=== PATIENT | male | born 1950 | race Caucasian/White ===

== ENCOUNTER 2016-06-15 17:16 | Observation (INO) ==
[2016-06-15] MEDS ORDERED: Acetaminophen 325 MG TABLET PO PRN (20:14)
[2016-06-15] MEDS ORDERED: *HR* OxyCODONE Immed Rel 5 MG TABLET PO PRN (20:15)
[2016-06-15] MEDS ORDERED: *HR* HYDROmorphone (PF) 1 MG/ML SYRINGE IVP PRN (20:19)
[2016-06-15] MEDS ORDERED: amLODIPine 5 MG TABLET PO SCH (20:30)
[2016-06-15] MEDS ORDERED: Celecoxib 100 MG CAPSULE PO SCH (20:30)
[2016-06-15] MEDS ORDERED: Lisinopril 20 MG TABLET PO SCH (20:30)
[2016-06-15] MEDS: 0.9 % Sodium Chloride 1,000 ML IVC SCH (22:22)
[2016-06-15] MEDS ORDERED: Ondansetron 4 MG/2 ML VIAL IVP PRN (23:40)
[2016-06-16] MEDS ORDERED: Ondansetron 4 MG/2 ML VIAL IVP SCH
[2016-06-16] MEDS: 0.9 % Sodium Chloride 1,000 ML IVC SCH (06:42)
--- NOTE | 2016-06-16 06:46 | Urology History & Physical ---
Date of Encounter: 06/16/16 Time of Encounter: 06:44 Assessment and Plan (1) Ureteral stone Current Visit: Yes Status: Acute 65 year old man with a left ureteral stone. He is still having pain this morning and wishes to have his stone treated. Plan for left ureteroscopy, laser lithotripsy, and stent placement. All risks were informed. He is willing to proceed. History of Present Illness Chief complaint: Left flank pain HPI: Mr. Noel is a 65 year old male presents with left flank pain. He was seen at the [place] and a CT showed a 9mm stone at the L4 level of the left ureter. The pain is sharp and radiates to the groin. He says it is severe when it comes on. Pain medication improves his pain. He denies a stone history. Past Med Surg Social Fam HX - Past Medical History Medical history: hypertension Psychiatric history: no psych history - Past Surgical History Surgical History: knee replacement - Social History Smoking Status: Never smoker - Family History Father Hx Family Genitourinary Disorders: Yes (Prostate cancer,) Medications and Allergies Amlodipine Besylate 5 mg PO DAILY 06/15/16 [History] Atorvastatin Calcium 20 mg PO DAILY 06/15/16 [History] Celecoxib [Celebrex] 100 mg PO DAILY 06/15/16 [History] Lisinopril [Zestril] 20 mg PO DAILY 06/15/16 [History] Ondansetron ODT [Zofran ODT] 4 mg SL Q8HR 06/15/16 [History] Oxycodone HCl/Acetaminophen [Percocet 5-325 mg Tablet] 1 each PO Q6HR 06/15/16 [ History] Tamsulosin HCl [Flomax] 0.4 mg PO DAILY 06/15/16 [History] Vitamin B Complex 1 each PO DAILY 06/15/16 [History] Allergies No Known Allergies Allergy (Verified 06/15/16 20:03) Review of Systems - Constitutional no chills, no fever(s) - EENT Nose, mouth and throat: no dizziness - Cardiovascular no chest pain - Respiratory no dyspnea - Gastrointestinal nausea, no vomiting - Genitourinary flank pain, no hematuria - Musculoskeletal no back pain - Integumentary no erythema, no rash - Neurological no weakness - Psychiatric no suicidal ideation - Hematologic/Lymphatic no easy bleeding - Allergic/Immunologic no wheezing Exam Initial Vital Signs Temp Pulse Resp BP Pulse Ox 98.1 F 64 16 152/79 92 06/15/16 19:36 06/15/16 19:36 06/15/16 19:36 06/15/16 19:36 06/15/16 19:36 - General physical appearance Present: well developed, well nourished, no distress - Eyes Absent: icteric - ENT Present: normal nares - Neck Present: trachea midline - Respiratory Present: normal respiratory effort - Cardiovascular Cardiovascular exam IM: RRR - Abdomen Abdomen: Present: soft Urology Results - Labs All other labs normal. - Imaging CT scan - abdomen: report reviewed, image reviewed
[2016-06-16] MEDS ORDERED: *HR* Succinylcholine 200 MG/10 ML VIAL IVP ONE (07:15)
[2016-06-16] MEDS ORDERED: *HR* FentaNYL (PF) 100 MCG/2 ML VIAL ONE (07:15)
[2016-06-16] MEDS ORDERED: *HR* Midazolam HCl 2 MG/2 ML VIAL ONE (07:15)
[2016-06-16] MEDS ORDERED: Lidocaine -MPF 2% 2 ML VIAL ONE (07:15)
[2016-06-16] MEDS ORDERED: *HR* Propofol 200 MG/20 ML VIAL IVP ONE (07:15)
--- NOTE | 2016-06-16 07:25 | Anesthesia Evaluation PreOp ---
Date of Encounter: 06/16/16 Time of Encounter: 07:23 - Past History Planned Operation: Left Ureteroscopy, Laser Lithotripsy Cardiac History: HTN, Hyperlipidemia Pulmonary History: Snore, ROSIO Dx SUMMER ANALYST History: Denies Any Significant HX Other Medical History: Renal (kidney stones), GERD Anesthesia History: No Prior Anesthetic Complications, Past Anesthesia Alcohol Use: none Drug use: none Medications and Allergies Amlodipine Besylate 5 mg PO DAILY 06/15/16 [History] Atorvastatin Calcium 20 mg PO DAILY 06/15/16 [History] Celecoxib [Celebrex] 100 mg PO DAILY 06/15/16 [History] Lisinopril [Zestril] 20 mg PO DAILY 06/15/16 [History] Ondansetron ODT [Zofran ODT] 4 mg SL Q8HR 06/15/16 [History] Oxycodone HCl/Acetaminophen [Percocet 5-325 mg Tablet] 1 each PO Q6HR 06/15/16 [ History] Tamsulosin HCl [Flomax] 0.4 mg PO DAILY 06/15/16 [History] Vitamin B Complex 1 each PO DAILY 06/15/16 [History] Allergies No Known Allergies Allergy (Verified 06/15/16 20:03) - Meds/Allergy Pre-op Review Medications Reviewed: Yes Allergies Reviewed: Yes Beta Blockers on Current Med List: No Anesthesia Results - Labs WBC 5 HGB 13.6 HCT 42.2 PLT 201 Na 141 K 3.6 BUN 12 Cr 1.19 Anesthesia Exam Vital Signs/O2 Sat, Most Current Temp Pulse Resp BP Pulse Ox 98.0 F 60 16 133/73 90 06/16/16 07:18 06/16/16 07:18 06/16/16 07:18 06/16/16 07:18 06/16/16 07:18 Height: 6'1''/1.85 m Weight: 219 lbs/99.7 kg NPO (# of Hours): 8 Pain Scale: 2 Pain Scale Used: Numeric (1 - 10) - HEENT Pupil (Motor): EOMI Mallampati: II Teeth: Edentulous Oral Opening: Greater than 3 - SUMMER ANALYST LOC: Oriented SUMMER ANALYST Motor: Normal RUE, Normal LUE, Normal RLE, Normal LLE, Normal Face SUMMER ANALYST Sensory: Normal: RUE, LUE, RLE, LLE, Face - Cardiac Rhythm: Regular Murmur: None - Pulmonary Breath Sounds: bilateral Clear Respiratory Effort: Symmetrical Anesthesia Assess/Plan ASA Score: 2 Modified Jyoti Scale for Level of Consciousness: Cooperative, oriented, and tranquil Anesthetic Plan: General Monitoring Plan: Standard Monitors Recovery Plan: PACU
[2016-06-16] MEDS ORDERED: *HR* HYDROmorphone (PF) 1 MG/ML SYRINGE IVP PRN ×2 (07:34→09:34)
--- NOTE | 2016-06-16 07:47 | Operative Note ---
Date of procedure: 06/16/16 Pre-op diagnosis: Left ureteral stone Post-op diagnosis: same Procedure: Left ureteroscopy, laser lithotripsy, basket stone extraction, and left ureteral stent placement. Implants: 6 [place] by 26 cm double-J stent. Complications: None. Anesthesia: ROSAA Surgeon: Tobin Henley Estimated blood loss (cc): 1 Specimen: Left ureteral stone Condition: stable Disposition: PACU Procedure in Detail: Indications: Mr. Noel is a 65-year-old gentleman who has a history of left flank pain. A CT scan showed a 9 mm stone in the proximal left ureter. He elected to undergo a left ureteroscopy, laser lithotripsy, and stent placement. He is aware of the risks of the procedure including but not limited to bleeding, infection, injury to other structures, need for further procedures, stent irritation, and the risk of anesthesia. He is willing to proceed. Procedure: After informed consent was obtained the patient was brought back to the operating room and placed in supine position. A time out was performed. General anesthesia was administered and an LMA was placed. He was then placed in the lithotomy position. He was prepped and draped in the usual sterile fashion. Cystoscopy was performed. The anterior urethra was normal. There was no evidence of bladder tumors. The ureteral orifices were in the normal orthotopic position. The Zip wire was placed in the left ureteral orifice and brought into the kidney under fluoroscopic guidance. The ureter was gently dilated with the 8/10 [place] ureteral dilator. I then advanced the semirigid ureteroscope into the ureter. The stone was seen in the proximal ureter. The stone was fragmented using the 365 micron fiber into small pieces. Once adequate stone fragmentation was performed the stone fragments were basket extracted. Once all the larger stone fragments were removed, a 6 [place] by 26cm JJ stent was then placed with good curl seen in the kidney and the bladder. The dangle string was left intact. The bladder was drained. The string was secured to the penis using a Tegaderm. The patient was then awakened from general anesthesia and brought to recovery room in good condition. All sponge, needle, and instrument counts were correct.
--- NOTE | 2016-06-16 07:50 | Discharge Summary ---
Date of Encounter: 06/17/16 Time of Encounter: 07:47 - Discharge Diagnosis (1) Ureteral stone Priority: Primary Status: Acute (2) Diverticulitis Priority: Secondary Status: Acute Qualifiers: Qualified Code(s): K57.33 - Diverticulitis of large intestine without perforation or abscess with bleeding - Discharge Medications Prescriptions: Ciprofloxacin HCl [Cipro] 500 mg PO BID #20 tablet Docusate [Colace] 100 mg PO BID #60 capsule MetroNIDAZOLE [Flagyl] 500 mg PO TID #30 tablet Oxycodone HCl/Acetaminophen [Percocet 5-325 mg Tablet] 1 each PO Q4H PRN #15 tablet PRN Reason: Pain Phenazopyridine HCl [Pyridium] 200 mg PO TIDAC #12 tab Home Medications: Amlodipine Besylate 5 mg PO DAILY 06/15/16 [History] Atorvastatin Calcium 20 mg PO DAILY 06/15/16 [History] Celecoxib [Celebrex] 100 mg PO DAILY 06/15/16 [History] Lisinopril [Zestril] 20 mg PO DAILY 06/15/16 [History] Ondansetron ODT [Zofran ODT] 4 mg SL Q8HR 06/15/16 [History] Oxycodone HCl/Acetaminophen [Percocet 5-325 mg Tablet] 1 each PO Q6HR 06/15/16 [ History] Tamsulosin HCl [Flomax] 0.4 mg PO DAILY 06/15/16 [History] Vitamin B Complex 1 each PO DAILY 06/15/16 [History] Ciprofloxacin HCl [Cipro] 500 mg PO BID #20 tablet 06/16/16 [Rx] Docusate [Colace] 100 mg PO BID #60 capsule 06/16/16 [Rx] MetroNIDAZOLE [Flagyl] 500 mg PO TID #30 tablet 06/16/16 [Rx] Oxycodone HCl/Acetaminophen [Percocet 5-325 mg Tablet] 1 each PO Q4H PRN #15 tablet 06/16/16 [Rx] Phenazopyridine HCl [Pyridium] 200 mg PO TIDAC #12 tab 06/16/16 [Rx] Allergies/Adverse Reactions: Allergies No Known Allergies Allergy (Verified 06/15/16 20:03) - Impressions ITS Impressions KUB X-Ray 06/16/16 06:25 IMPRESSION: No urinary calculi seen although evaluation is limited by overlying bowel contents. D/ / Rhett Hopper MD / Rhett Hopper MD Interpreting Provider: Rhett Hopper MD Date of admission: 06/15/16 19:14 Primary care physician: Rodger Brenner MD Discharging clinician: Tobin Henley Anticipated date of discharge: 06/16/16 - Patient Status Disposition: Home, Self-Care Condition: Good Functional capacity at discharge: independent ambulation Overall status at discharge: patient is progressing back to baseline - Ambulatory Orders Ambulatory Orders: XR KUB [XR] Time Frame: 2 Weeks, Facility: [facility], Location: Radiology - Discharge Instructions Instructions: Kidney Stones (DC) Follow Up With: Tobin Henley MD [Partnered Physician] - (2-3 weeks with a KUB prior. follow up appointment web requested for 2-3 weeks from date of discharge. ) Forms: Inpatient Work/School Release Additional Instructions: 1. The patient can remove the stent in 5 days by pulling up on the string. 2. He should expect to feel flank pain with voiding. 3. The patient should call for any fevers, chills, nausea, emesis, or uncontrolled pain. 4. Please provide a work excuse if necessary for up to 1 week off. 5. He can follow up in 2-3 weeks with a KUB. - Diet and Activity Activity: increase activity as tolerated Diet: advance to your usual diet - Hospital Course Hospital course: Mr. Noel is a 65 year old male presented with left flank pain. He was transferred from the [place] emergency department after a CT scan showed a 9 mm stone in the left proximal ureter. He is admitted on June 15, 2016. On June 16, 2016 he underwent an uneventful left ureteroscopy, laser lithotripsy, and stent placement. He tolerated the procedure well and was discharged home with that day. He had an incidental diagnosis of diverticulitis and will be treated upon discharge for that. - Time Spent with Patient Total time spent providing and/or coordinating discharge services: Less than 30 minutes Exam Initial Vital Signs Temp Pulse Resp BP Pulse Ox 98.1 F 64 16 152/79 92 06/15/16 19:36 06/15/16 19:36 06/15/16 19:36 06/15/16 19:36 06/15/16 19:36 - General physical appearance Present: well developed, well nourished, no distress - Eyes Absent: icteric - ENT Present: normal nares - Neck Present: trachea midline - Respiratory Present: normal respiratory effort - Cardiovascular Cardiovascular exam IM: RRR - Abdomen Abdomen: Present: soft
[2016-06-16] MEDS ORDERED: Dexamethasone 4 MG/ML VIAL ONE (08:18)
[2016-06-16] MEDS ORDERED: Ondansetron 4 MG/2 ML VIAL ONE (08:18)
--- NOTE | 2016-06-16 09:11 | Anesthesia Evaluation Post Op ---
Date of Encounter: 06/16/16 Time of Encounter: 09:11 - Vital Signs Vital Signs: Vital Signs/O2 Sat, Most Current Temp Pulse Resp BP Pulse Ox 98.1 F 52 14 136/84 94 06/16/16 09:05 06/16/16 09:05 06/16/16 09:05 06/16/16 09:05 06/16/16 09:05 - Lungs Lungs: Clear Ascult./Percussion - Airway Airway: Non-obstructed - Cardiovascular Regular Rate - Mental Status Mental Status: Alert & Oriented, Answers Appropriately - Pain Pain Scale: 0 Pain Scale used: Numeric (1 - 10) - Nausea Vomiting Nausea Vomiting: Not Present - Hydration Hydration: Ice chips, Has not voided - Discharge PostOp Status: Transfer Patient to floor
[2016-06-16] MEDS ORDERED: Acetaminophen 325 MG TABLET PO PRN (09:34)
[2016-06-16] MEDS ORDERED: Ondansetron 4 MG/2 ML VIAL IVP PRN (09:34)
[2016-06-16] MEDS ORDERED: 0.9 % Sodium Chloride 1,000 ML IVC SCH (09:34)
[2016-06-16] MEDS ORDERED: *HR* OxyCODONE Immed Rel 5 MG TABLET PO PRN (09:34)
[2016-06-17] MEDS ORDERED: amLODIPine 5 MG TABLET PO SCH (09:00)
[2016-06-17] MEDS ORDERED: Celecoxib 100 MG CAPSULE PO SCH (09:00)
[2016-06-17] MEDS ORDERED: Lisinopril 20 MG TABLET PO SCH (09:00)
[2016-06-18 11:02] VITALS: BP 144/81
== END 2016-06-16 13:10 | disposition home or self-care (01) ==
LOC: 3BNU
PROVIDERS: ADMIT Urology; ATTEND Urology